=== PATIENT | male | born 1965 | race Two or more races ===

== ENCOUNTER 2018-12-29 13:15 | Day surgery (SDC) | payer OTHER ==
[~2018-12-29] VITALS: Ht 170.2 cm; Wt 118.0 kg
--- NOTE | 2018-12-29 13:29 | NUR ---
PT TO ROOM AT THIS TIME.
--- NOTE | 2018-12-29 13:42 | NUR ---
53 Y/O MALE PRESENTS TO ED WITH C/O LEFT QUAD PAIN. PER PT "YESTERDAY I WAS BRUSHING MY TEETH AND I THREW UP. AFTER THAT MY STOMACH STARTED HURTING. I CAN'T EAT OR DRINK ANYTHING AND I THROW UP. I CAN'T EVEN DRINK GATORADE. NOW I FEEL THE PAIN NOW ACROSS MY BELLY." NO C/O D, TRAUMA, SYNCOPE, CP, SOB.
[2018-12-29] MEDS ORDERED: SODIUM CHLORIDE FLUSH 10ML SYR IVF ONE (14:00)
[2018-12-29] MEDS ORDERED: SODIUM CHLORIDE 0.9% 1,000ML IVBOLUS ONE (14:00)
[2018-12-29 14:32] LABS: BASOPHILS # (AUTO) 0.13 x10^3/uL (0-0.1); BASOPHILS % (AUTO) 1 % (0-1); EOSINOPHILS % (AUTO) 0 % (1-7); LYMPHOCYTES # (AUTO) 0.73 x10^3/uL (1-3.4); LYMPHOCYTES % (AUTO) 4 % (22-44); MD NO; MEAN CORPUSCULAR HEMOGLOBIN 30.5 pg (27.5-34.5); MEAN CORPUSCULAR HGB CONC 33.7 g/dL (33.2-36.2); MEAN CORPUSCULAR VOLUME 90.4 fL (81-97); MEAN PLATELET VOLUME 9.7 fL (7.4-10.4); MONOCYTES # (AUTO) 0.23 x10^3/uL (0.2-0.8); MONOCYTES % (AUTO) 1 % (2-9); NEUTROPHILS % (AUTO) 94 % (42-75); PLATELET COUNT 187 x10^3/uL (130-400); RED BLOOD COUNT 5.36 x10^6/uL (4.38-5.82); RED CELL DISTRIBUTION WIDTH 12.6 % (9.4-14.8)
[2018-12-29 14:41] LABS: ALANINE AMINOTRANSFERASE 26 U/L (12-78); ALBUMIN 3.4 g/dL (3.4-5.0); ANION GAP 7 mmol/L (5-15); CALCIUM 8.6 mg/dL (8.5-10.1); CHLORIDE 100 mmol/L (98-107); CREATININE 1.08 mg/dL (0.7-1.3)
[2018-12-29 14:43] LABS: ALKALINE PHOSPHATASE 112 U/L (45-117); BILIRUBIN,TOTAL 0.8 mg/dL (0.2-1.0); TOTAL PROTEIN 7.5 g/dL (6.4-8.2)
--- NOTE | 2018-12-29 14:52 | NUR ---
PT BEING TAKEN TO IMAGING.
[2018-12-29] MEDS ORDERED: OMNIPAQUE 350 MG/ML, 100ML BOTTLE ONE (15:05)
--- NOTE | 2018-12-29 15:33 | NUR ---
PT BACK FROM IMAGING.
--- NOTE | 2018-12-29 15:34 | NUR ---
PT RESTING ON GURNEY. NO ACUTE DISTRESS NOTED. BLANKETS REARRANGED ON PT. VSS. NO NEEDS REQUESTED AT THIS TIME.
[2018-12-29] MEDS ORDERED: CEFOTETAN PMX 1GM/50ML 50 ML ONE ×2 (15:45→19:07)
--- NOTE | 2018-12-29 15:50 | NUR ---
PT RESTING ON GURNEY. NO ACUTE DISTRESS NOTED. PT EDUCATED REGARDING NPO STATUS. PT VERBALIZED UNDERSTANDING. NO NEEDS REQUESTED AT THIS TIME.
[2018-12-29] MEDS ORDERED: METF500T17 PO (15:51)
[2018-12-29] MEDS ORDERED: CEFOTETAN PMX 1GM/50ML 50 ML IV ONE (16:00)
[2018-12-29] MEDS ORDERED: ONDANSETRON 2MG/ML, 2ML IVPush PRN (17:00)
[2018-12-29] MEDS ORDERED: morphine SULFATE 10 MG/ML, 1ML IVPush PRN (17:00)
--- NOTE | 2018-12-29 17:56 | NUR ---
REPORT TO KERRY MULLER. PT GOING TO OR.
[2018-12-29] MEDS ORDERED: SODIUM CHLORIDE 0.9%, 500ML IVBOLUS ONE (18:00)
[2018-12-29] MEDS ORDERED: BUPIVACAINE/PF-EPI 0.5% 1:200K ONE (18:11)
[2018-12-29] MEDS ORDERED: FENTANYL PF 250 MCG/5ML ONE (18:18)
[2018-12-29] MEDS ORDERED: ONDANSETRON 2MG/ML, 2ML IV PRN (19:00)
[2018-12-29] MEDS ORDERED: LABETALOL 5MG/ML, 20ML IV PRN (19:00)
[2018-12-29] MEDS ORDERED: PROMETHAZINE 25 MG/ML, 1ML IV PRN (19:00)
[2018-12-29] MEDS ORDERED: OXYcodone 5 MG/5 ML ORAL.SOL UDC PO PRN (19:00)
[2018-12-29] MEDS ORDERED: FENTANYL PF 100 MCG/2ML IV PRN (19:00)
[2018-12-29] MEDS ORDERED: MEPERIDINE/PF 25MG/0.5ML IVPush PRN (19:00)
[2018-12-29] MEDS ORDERED: ONDANSETRON ODT 8 MG PO PRN (19:00)
[2018-12-29] MEDS ORDERED: HYDROmorphone 2 MG/ML, 1ML IVPush PRN (19:00)
[2018-12-29] MEDS ORDERED: hydrALAzine 20 MG/ML, 1ML IV PRN (19:00)
[2018-12-29] MEDS ORDERED: LORazepam 2 MG/ML, 1ML IVPush PRN (19:00)
[2018-12-29] MEDS ORDERED: ACETAMINOPHEN 325 MG TABLET PO PRN (19:00)
[2018-12-29] MEDS ORDERED: PROPOFOL 10 MG/ML, 20ML ONE (19:06)
[2018-12-29] MEDS ORDERED: ONDANSETRON 2MG/ML, 2ML ONE (19:06)
[2018-12-29] MEDS ORDERED: ROCURONIUM 10MG/ML,5ML ONE (19:06)
[2018-12-29] MEDS ORDERED: GLYCOPYRROLATE 0.2MG/1ML, 5ML ONE (19:06)
[2018-12-29] MEDS ORDERED: NEOSTIGMINE 1 MG/ML, 10ML ONE (19:06)
[2018-12-29] MEDS ORDERED: DEXAMETHASONE 4 MG/ML, 1ML ONE (19:06)
[2018-12-29] MEDS ORDERED: CEFAZOLIN 1,000 MG ONE (19:06)
[2018-12-29] MEDS ORDERED: SUCCINYLCHOLINE 20 MG/ML, 10ML ONE (19:06)
[2018-12-29] MEDS ORDERED: OXYcodone 5 MG/5 ML ORAL.SOL UDC ONE (19:41)
[2018-12-29 21:02] VITALS: BP 121/71
[2018-12-29] MEDS ORDERED: CEFOTETAN PMX 2GM/50ML 50 ML IV SCH (21:30)
[2018-12-29] MEDS: INSULIN LISPRO 100 UNITS/ML, PEN SQ-INSULIN SCH (21:54)
[2018-12-30 00:12] VITALS: BP 109/73
[2018-12-30] MEDS: SODIUM CHLORIDE 0.9% 1,000 ML IV SCH ×2 (00:32→10:00)
[2018-12-30 03:21] VITALS: BP 121/76
[2018-12-30 05:27] LABS: BASOPHILS # (AUTO) 0.04 x10^3/uL (0-0.1); BASOPHILS % (AUTO) 0 % (0-1); EOSINOPHILS # (AUTO) 0.02 x10^3/uL (0-0.4); EOSINOPHILS % (AUTO) 0 % (1-7); LYMPHOCYTES # (AUTO) 1.02 x10^3/uL (1-3.4); LYMPHOCYTES % (AUTO) 11 % (22-44); MD NO; MEAN CORPUSCULAR HEMOGLOBIN 30.3 pg (27.5-34.5); MEAN CORPUSCULAR HGB CONC 33.3 g/dL (33.2-36.2); MEAN CORPUSCULAR VOLUME 90.8 fL (81-97); MEAN PLATELET VOLUME 10.2 fL (7.4-10.4); MONOCYTES # (AUTO) 0.52 x10^3/uL (0.2-0.8); MONOCYTES % (AUTO) 6 % (2-9); NEUTROPHILS # (AUTO) 7.57 x10^3/uL (1.8-6.8); NEUTROPHILS % (AUTO) 83 % (42-75); PLATELET COUNT 155 x10^3/uL (130-400); RED BLOOD COUNT 4.66 x10^6/uL (4.38-5.82); RED CELL DISTRIBUTION WIDTH 13.3 % (9.4-14.8)
[2018-12-30 05:34] LABS: ALANINE AMINOTRANSFERASE 21 U/L (12-78); ALBUMIN 2.6 g/dL (3.4-5.0); ANION GAP 7 mmol/L (5-15); CALCIUM 7.8 mg/dL (8.5-10.1); CHLORIDE 106 mmol/L (98-107)
[2018-12-30 05:45] LABS: ALKALINE PHOSPHATASE 86 U/L (45-117); BILIRUBIN,TOTAL 0.6 mg/dL (0.2-1.0); CREATININE 0.71 mg/dL (0.7-1.3); THYROID STIMULATING HORMONE 0.624 mIU/L (0.358-3.740)
[2018-12-30 07:18] VITALS: BP 121/71
[2018-12-30] MEDS: INSULIN LISPRO 100 UNITS/ML, PEN SQ-INSULIN SCH ×2 (07:36→11:24)
[2018-12-30] MEDS ORDERED: METF850T10 PO (10:40)
[2018-12-30 12:15] LABS: HEMOGLOBIN A1C 12.4 % (4.2-6.3)
== END 2018-12-29 23:59 | disposition home or self-care (01) ==
LOC: ED 15:48 → OUT 15:48 → UNDOADMIN 15:49 → EDIP 15:49 → ED 16:14 → EDSTATUS 16:44 → 4NOR 20:15 → EDIP 20:15 → OUT 23:59 → DCLOUNGE 12-30 13:05 → 4NOR 12-30 13:05 → UNDODISIN 12-30 13:29 → OUT 12-30 15:48
PROVIDERS: ATTEND Emergency Medicine
DX: K35.80 Unspecified acute appendicitis (principal); I10 Essential (primary) hypertension; E11.65 Type 2 diabetes mellitus with hyperglycemia; E86.0 Dehydration; D72.829 Elevated white blood cell count, unspecified; E66.9 Obesity, unspecified; Z68.38 Body mass index [BMI] 38.0-38.9, adult; Z79.84 Long term (current) use of oral hypoglycemic drugs; Z83.3 Family history of diabetes mellitus; Z73.89 Other problems related to life management difficulty
CPT/HCPCS: 36415; 44970; 74177; 80053; 82962; 85025; 88304; 96361; 96365; 99285; J0330; J1100; J1815; J2405; J2704; J2710; J3010; J3490; J7030; J7040; Q9967; 83036; 84443; G0378; J0690

== ENCOUNTER 2019-07-25 01:11 | Inpatient (IN) | payer SELFPAY ==
[~2019-07-25] VITALS: Ht 170.2 cm; Wt 110.0 kg
[~2019-07-25 01:11] MED LIST: METF500T17 PO; METF850T10 PO
[2019-07-25] MEDS ORDERED: ASPIRIN 81 MG TABLET CHEW ONE (01:46)
[2019-07-25 01:50] LABS: BASOPHILS # (AUTO) 0.05 x10^3/uL (0-0.1); BASOPHILS % (AUTO) 1 % (0-1); EOSINOPHILS # (AUTO) 0.17 x10^3/uL (0-0.4); EOSINOPHILS % (AUTO) 2 % (1-7); LYMPHOCYTES # (AUTO) 3.59 x10^3/uL (1-3.4); LYMPHOCYTES % (AUTO) 41 % (22-44); MD NO; MEAN CORPUSCULAR HEMOGLOBIN 29.9 pg (27.5-34.5); MEAN CORPUSCULAR VOLUME 90.6 fL (81-97); MEAN PLATELET VOLUME 9.9 fL (7.4-10.4); MONOCYTES # (AUTO) 0.59 x10^3/uL (0.2-0.8); MONOCYTES % (AUTO) 7 % (2-9); NEUTROPHILS # (AUTO) 4.38 x10^3/uL (1.8-6.8); NEUTROPHILS % (AUTO) 50 % (42-75); PLATELET COUNT 244 x10^3/uL (130-400); RED BLOOD COUNT 5.41 x10^6/uL (4.38-5.82)
--- NOTE | 2019-07-25 01:53 | NUR ---
PT REPORTS LEFT SIDED CHEST PAIN THAT COMES AND GOES SINCE YESTERDAY AT 1630. LINING PRINTER ON. NSR NOTED. CALL LIGHT IN PLACE. PT SEEN BY DR CLINE. PT REPORTS HE DOES NOT WANT MORPHINE AT THIS TIME. REPORT GIVEN TO KERRY JONES.
[2019-07-25] MEDS ORDERED: ASPIRIN 81 MG TABLET CHEW PO ONE (02:00)
[2019-07-25] MEDS ORDERED: MORPHINE SULFATE 4 MG/ML, 1ML IVPush PRN (02:00)
[2019-07-25] MEDS ORDERED: SODIUM CHLORIDE FLUSH 10ML SYR IVF ONE (02:00)
[2019-07-25 02:02] LABS: ALANINE AMINOTRANSFERASE 25 U/L (12-78); ALBUMIN 3.6 g/dL (3.4-5.0); ANION GAP 10 mmol/L (5-15); CALCIUM 8.7 mg/dL (8.5-10.1); CHLORIDE 104 mmol/L (98-107); CREATININE 0.78 mg/dL (0.7-1.3)
[2019-07-25 02:07] LABS: ALKALINE PHOSPHATASE 112 U/L (45-117); BILIRUBIN,TOTAL 0.4 mg/dL (0.2-1.0); TOTAL PROTEIN 7.6 g/dL (6.4-8.2)
[2019-07-25 02:08] LABS: TROPONIN I 0.147 ng/mL (0.000-0.045)
--- NOTE | 2019-07-25 03:10 | NUR ---
REPORT TO KERRY HENNING
[2019-07-25 03:54] VITALS: BP 147/99
[2019-07-25] MEDS ORDERED: NITROGLYCERIN 0.4 MG BOTTLE (25 TABS) SL PRN (05:30)
[2019-07-25] MEDS ORDERED: ACETAMINOPHEN 325 MG TABLET PO PRN (05:30)
[2019-07-25] MEDS ORDERED: ENOXAPARIN 40 MG/0.4 ML SQ SCH (05:30)
[2019-07-25] MEDS ORDERED: PROMETHAZINE 25 MG/ML, 1ML IM PRN (05:30)
[2019-07-25] MEDS ORDERED: hydrALAzine 20 MG/ML, 1ML IVPush PRN (05:30)
[2019-07-25] MEDS ORDERED: morphine SULFATE 10 MG/ML, 1ML IVPush PRN (05:30)
[2019-07-25] MEDS: ASPIRIN 325 MG TABLET EC PO SCH (06:35)
[2019-07-25] MEDS: INSULIN LISPRO 100 UNITS/ML, PEN SQ-INSULIN SCH ×4 (07:00→21:17)
[2019-07-25 07:32] LABS: CHOLESTEROL, TOTAL 176 mg/dL (140-239); TRIGLYCERIDES 91 mg/dL (50-200); VLDL CHOLESTEROL 18 mg/dL (0-25)
[2019-07-25 07:35] LABS: CHOL/HDL RATIO 4.3; HDL CHOL % 23 % (26-37); HDL CHOLESTEROL (DIRECT) 41 mg/dL (40-60); LDL CHOLESTEROL,CALCULATED 117 mg/dL (54-169); LDL/HDL RATIO 2.9 (0.5-3.0)
[2019-07-25 07:46] LABS: HEMOGLOBIN A1C 11.8 % (4.2-6.3)
[2019-07-25] MEDS ORDERED: HEPARIN 5,000 UNITS/ML, 1ML IV ONE (08:30)
[2019-07-25] MEDS ORDERED: LISINOPRIL 5 MG TABLET PO SCH (09:00)
[2019-07-25] MEDS ORDERED: GLUCAGON 1 MG IM PRN (09:00)
[2019-07-25] MEDS ORDERED: DEXTROSE 4 GM TAB.CHEW PO PRN (09:00)
[2019-07-25] MEDS ORDERED: DEXTROSE 50%, 50ML SYRINGE IVPush PRN (09:00)
[2019-07-25] MEDS: HEPARIN 25,000 UNITS/500ML PMX 500 ML IV PRN (09:48)
[2019-07-25] MEDS: SODIUM CHLORIDE FLUSH 10ML SYR IVF SCH ×2 (09:51→21:06)
[2019-07-25 14:30] VITALS: BP 113/73
[2019-07-25] MEDS: HEPARIN 5,000 UNITS/ML, 1ML IV PRN ×2 (16:09→23:21)
[2019-07-25] MEDS: CARVEDILOL 6.25 MG TABLET PO SCH (18:02)
[2019-07-25 18:56] VITALS: BP 124/78
[2019-07-25 21:04] VITALS: BP 107/74
[2019-07-25] MEDS: LISINOPRIL 5 MG TABLET PO SCH (21:06)
[2019-07-26 01:30] VITALS: BP 101/65
[2019-07-26 04:20] LABS: BASOPHILS # (AUTO) 0.06 x10^3/uL (0-0.1); BASOPHILS % (AUTO) 1 % (0-1); EOSINOPHILS # (AUTO) 0.12 x10^3/uL (0-0.4); EOSINOPHILS % (AUTO) 2 % (1-7); LYMPHOCYTES # (AUTO) 2.93 x10^3/uL (1-3.4); LYMPHOCYTES % (AUTO) 40 % (22-44); MD NO; MEAN CORPUSCULAR HEMOGLOBIN 30.2 pg (27.5-34.5); MEAN CORPUSCULAR VOLUME 91.5 fL (81-97); MEAN PLATELET VOLUME 10.1 fL (7.4-10.4); MONOCYTES # (AUTO) 0.51 x10^3/uL (0.2-0.8); MONOCYTES % (AUTO) 7 % (2-9); NEUTROPHILS % (AUTO) 51 % (42-75); PLATELET COUNT 224 x10^3/uL (130-400); RED BLOOD COUNT 5.07 x10^6/uL (4.38-5.82); RED CELL DISTRIBUTION WIDTH 13.5 % (9.4-14.8)
[2019-07-26 04:31] LABS: ANION GAP 5 mmol/L (5-15); CALCIUM 8.6 mg/dL (8.5-10.1); CHLORIDE 107 mmol/L (98-107); CREATININE 0.71 mg/dL (0.7-1.3)
[2019-07-26 05:57] VITALS: BP 109/74
[2019-07-26] MEDS: CARVEDILOL 6.25 MG TABLET PO SCH ×2 (06:01→17:08)
[2019-07-26] MEDS: HEPARIN 5,000 UNITS/ML, 1ML IV PRN ×2 (06:02→11:52)
[2019-07-26] MEDS: ASPIRIN 325 MG TABLET EC PO SCH (06:02)
[2019-07-26] MEDS: INSULIN LISPRO 100 UNITS/ML, PEN SQ-INSULIN SCH ×4 (07:19→20:32)
[2019-07-26] MEDS: HEPARIN 25,000 UNITS/500ML PMX 500 ML IV PRN ×2 (07:21→23:31)
[2019-07-26 07:24] VITALS: BP 110/65
[2019-07-26] MEDS: SODIUM CHLORIDE FLUSH 10ML SYR IVF SCH ×2 (07:49→20:33)
[2019-07-26] MEDS: LISINOPRIL 5 MG TABLET PO SCH ×2 (07:49→20:32)
[2019-07-26 14:38] VITALS: BP 104/67
[2019-07-26 18:26] VITALS: BP 118/77
[2019-07-26] MEDS: ATORVASTATIN 40 MG TABLET PO SCH (20:32)
[2019-07-27 00:45] VITALS: BP 116/72
[2019-07-27] MEDS: HEPARIN 5,000 UNITS/ML, 1ML IV PRN (01:39)
[2019-07-27 05:15] LABS: BASOPHILS # (AUTO) 0.04 x10^3/uL (0-0.1); BASOPHILS % (AUTO) 1 % (0-1); EOSINOPHILS % (AUTO) 2 % (1-7); LYMPHOCYTES # (AUTO) 2.26 x10^3/uL (1-3.4); LYMPHOCYTES % (AUTO) 27 % (22-44); MD NO; MEAN CORPUSCULAR HGB CONC 33.1 g/dL (33.2-36.2); MEAN CORPUSCULAR VOLUME 90.7 fL (81-97); MEAN PLATELET VOLUME 10.2 fL (7.4-10.4); MONOCYTES # (AUTO) 0.69 x10^3/uL (0.2-0.8); MONOCYTES % (AUTO) 8 % (2-9); NEUTROPHILS # (AUTO) 5.31 x10^3/uL (1.8-6.8); NEUTROPHILS % (AUTO) 63 % (42-75); PLATELET COUNT 215 x10^3/uL (130-400); RED CELL DISTRIBUTION WIDTH 13.2 % (9.4-14.8)
[2019-07-27 05:23] LABS: ANION GAP 5 mmol/L (5-15); CALCIUM 8.6 mg/dL (8.5-10.1); CHLORIDE 105 mmol/L (98-107)
[2019-07-27 05:27] LABS: ALANINE AMINOTRANSFERASE 23 U/L (12-78); ALKALINE PHOSPHATASE 86 U/L (45-117); BILIRUBIN,TOTAL 0.7 mg/dL (0.2-1.0); CREATININE 0.79 mg/dL (0.7-1.3); TOTAL PROTEIN 6.6 g/dL (6.4-8.2)
[2019-07-27] MEDS: CARVEDILOL 6.25 MG TABLET PO SCH ×2 (05:37→18:25)
[2019-07-27] MEDS: ASPIRIN 325 MG TABLET EC PO SCH (05:37)
[2019-07-27] MEDS: INSULIN LISPRO 100 UNITS/ML, PEN SQ-INSULIN SCH ×4 (07:00→21:32)
[2019-07-27 07:40] VITALS: BP 100/68
[2019-07-27] MEDS: LISINOPRIL 5 MG TABLET PO SCH ×2 (08:35→21:32)
[2019-07-27] MEDS: SODIUM CHLORIDE FLUSH 10ML SYR IVF SCH ×2 (08:35→21:00)
[2019-07-27] MEDS ORDERED: SODIUM CHLORIDE 0.9% 1,000 ML IV SCH ×2 (11:00→13:02)
[2019-07-27] MEDS ORDERED: NITROGLYCERIN 5 MG/ML, 10ML ONE (12:03)
[2019-07-27] MEDS ORDERED: MIDAZOLAM 1 MG/ML, 5ML ONE (12:03)
[2019-07-27] MEDS ORDERED: VERAPAMIL 2.5 MG/ML, 2ML ONE (12:03)
[2019-07-27] MEDS ORDERED: FENTANYL PF 250 MCG/5ML ONE (12:03)
[2019-07-27] MEDS ORDERED: LIDOCAINE 1%, 20ML ONE (12:04)
[2019-07-27] MEDS ORDERED: HEPARIN 1,000 UNITS/ML, 10ML ONE (12:04)
[2019-07-27] MEDS ORDERED: BIVALIRUDIN 250 MG ONE ×2 (12:04→12:08)
[2019-07-27] MEDS ORDERED: BIVALIRUDIN 250 MG in SODIUM CHLORIDE 0.9% 50 ML IV SCH (13:02)
[2019-07-27] MEDS ORDERED: PRASUGREL 10 MG TABLET ONE (13:03)
[2019-07-27] MEDS ORDERED: ONDANSETRON 2MG/ML, 2ML IVPush PRN (13:30)
[2019-07-27] MEDS ORDERED: ZOLPIDEM 5MG TABLET PO PRN (13:30)
[2019-07-27 13:38] VITALS: BP 152/81
[2019-07-27 18:57] VITALS: BP 118/75
[2019-07-27] MEDS: ATORVASTATIN 40 MG TABLET PO SCH (21:32)
[2019-07-28 01:01] VITALS: BP 125/84
[2019-07-28 04:13] VITALS: BP 117/83
[2019-07-28 05:40] LABS: ANION GAP 7 mmol/L (5-15); CALCIUM 8.5 mg/dL (8.5-10.1); CHLORIDE 102 mmol/L (98-107)
[2019-07-28 05:41] LABS: CREATININE 0.77 mg/dL (0.7-1.3)
[2019-07-28] MEDS: CARVEDILOL 6.25 MG TABLET PO SCH (05:52)
[2019-07-28] MEDS ORDERED: ASPIRIN 81 MG TABLET EC PO SCH (06:00)
[2019-07-28 08:25] VITALS: BP 120/79
[2019-07-28] MEDS: LISINOPRIL 5 MG TABLET PO SCH (08:39)
[2019-07-28] MEDS: INSULIN LISPRO 100 UNITS/ML, PEN SQ-INSULIN SCH ×2 (08:39→12:56)
[2019-07-28] MEDS: SODIUM CHLORIDE FLUSH 10ML SYR IVF SCH (08:40)
[2019-07-28] MEDS ORDERED: PRASUGREL 10 MG TABLET PO SCH (09:00)
[2019-07-28] MEDS ORDERED: PRAS10TA4 PO (11:39)
[2019-07-28] MEDS ORDERED: LISI5TAB7 PO (11:39)
[2019-07-28] MEDS ORDERED: ATOR40TA78 PO (11:39)
[2019-07-28] MEDS ORDERED: METF500T PO (11:39)
[2019-07-28] MEDS ORDERED: CARV6.2512 PO (11:39)
[2019-07-28] MEDS ORDERED: ASPI81TA45 PO (11:39)
== END 2019-07-28 13:00 | disposition home or self-care (01) | DRG 247 ==
LOC: ED 01:54 → EDIP 02:40 → 5SO 03:46 → UNDODISIN 07-28 11:50 → DCLOUNGE 07-28 12:35
PROVIDERS: ADMIT Family Medicine; ATTEND Internal Medicine
PROC: 027034Z Dilation of Coronary Artery, One Artery with Drug-eluting Intraluminal Device, Percutaneous Approach (ICD-10-PCS; principal; 2019-07-27)
PROC: 4A023N7 Measurement of Cardiac Sampling and Pressure, Left Heart, Percutaneous Approach (ICD-10-PCS; 2019-07-27)
PROC: B2151ZZ Fluoroscopy of Left Heart using Low Osmolar Contrast (ICD-10-PCS; 2019-07-27)
PROC: B2111ZZ Fluoroscopy of Multiple Coronary Arteries using Low Osmolar Contrast (ICD-10-PCS; 2019-07-27)
DX: I21.4 Non-ST elevation (NSTEMI) myocardial infarction (principal); E66.01 Morbid (severe) obesity due to excess calories; I27.20 Pulmonary hypertension, unspecified; E11.9 Type 2 diabetes mellitus without complications; E78.5 Hyperlipidemia, unspecified; I10 Essential (primary) hypertension; Z82.49 Family history of ischemic heart disease and other diseases of the circulatory system; Z91.14 Patient's other noncompliance with medication regimen; Z87.891 Personal history of nicotine dependence; Z68.38 Body mass index [BMI] 38.0-38.9, adult
CPT/HCPCS: 36415; 93458; 99285; C9600; J3490; 80048; 80053; 82962; 83735; 84100; 84484; 85025; 85520; 93005; 99156; 99157; C1769; C1894; G0378; J0583; J1644; J2250; J3010; C1874; C1887; J1815; J7030; Q9967

== ENCOUNTER 2020-08-28 14:08 | Emergency (ER) | payer OTHER ==
[~2020-08-28] VITALS: Ht 170.2 cm; Wt 108.0 kg
[~2020-08-28 14:08] MED LIST changes: +ASPI81TA45 PO; +ATOR40TA78 PO; +CARV6.2512 PO; +LISI5TAB7 PO; +METF500T PO; +PRAS10TA4 PO
[2020-08-28 15:11] LABS: BASOPHILS % (AUTO) 1 % (0-1); EOSINOPHILS % (AUTO) 0 % (1-7); LYMPHOCYTES % (AUTO) 18 % (22-44); MEAN CORPUSCULAR HEMOGLOBIN 30.1 pg (27.5-34.5); MEAN CORPUSCULAR HGB CONC 34.2 g/dL (33.2-36.2); MEAN PLATELET VOLUME 8.8 fL (7.4-10.4); MONOCYTES % (AUTO) 9 % (2-9); NEUTROPHILS % (AUTO) 71 % (42-75); PLATELET COUNT 200 x10^3/uL (130-400); RED BLOOD COUNT 5.37 x10^6/uL (4.38-5.82); RED CELL DISTRIBUTION WIDTH 13.9 % (9.4-14.8)
[2020-08-28 15:13] LABS: MD NO
[2020-08-28 15:20] LABS: ALBUMIN 3.8 g/dL (3.4-5.0); ANION GAP 9 mmol/L (5-15); CALCIUM 8.7 mg/dL (8.5-10.1); CHLORIDE 104 mmol/L (98-107); CREATININE 0.74 mg/dL (0.7-1.3)
[2020-08-28 15:23] LABS: TROPONIN I < 0.015 ng/mL (0.000-0.045)
[2020-08-28 17:07] VITALS: BP 123/76
== END 2020-08-28 17:10 | disposition home or self-care (01) ==
LOC: ED 14:58
DX: R07.89 Other chest pain (principal); R94.31 Abnormal electrocardiogram [ECG] [EKG]; I10 Essential (primary) hypertension; E11.9 Type 2 diabetes mellitus without complications; I25.2 Old myocardial infarction
CPT/HCPCS: 36415; 71046; 80048; 82040; 84484; 85025; 93005; 99285

== ENCOUNTER 2020-09-01 16:43 | Observation (INO) | payer OTHER ==
[~2020-09-01] VITALS: Ht 165.1 cm; Wt 106.4 kg
--- NOTE | 2020-09-01 17:13 | NUR ---
pt states "about 2 hours ago i felt SOB and felt like i was having a anxiety attack"
--- NOTE | 2020-09-01 18:13 | NUR ---
pt in bed, temp 102.9, no distress
[2020-09-01 18:16] LABS: BASOPHILS % (AUTO) 0 % (0-1); EOSINOPHILS % (AUTO) 0 % (1-7); LYMPHOCYTES % (AUTO) 16 % (22-44); MEAN CORPUSCULAR HEMOGLOBIN 30.2 pg (27.5-34.5); MEAN CORPUSCULAR HGB CONC 34.7 g/dL (33.2-36.2); MEAN PLATELET VOLUME 9.2 fL (7.4-10.4); MONOCYTES % (AUTO) 7 % (2-9); NEUTROPHILS % (AUTO) 77 % (42-75); PLATELET COUNT 184 x10^3/uL (130-400); RED CELL DISTRIBUTION WIDTH 13.6 % (9.4-14.8)
[2020-09-01 18:19] LABS: ALANINE AMINOTRANSFERASE 19 U/L (12-78); ALBUMIN 3.3 g/dL (3.4-5.0); ANION GAP 6 mmol/L (5-15); CALCIUM 8.6 mg/dL (8.5-10.1); CHLORIDE 102 mmol/L (98-107); CREATININE 0.89 mg/dL (0.7-1.3)
[2020-09-01 18:21] LABS: MD NO
[2020-09-01 18:22] LABS: ALKALINE PHOSPHATASE 87 U/L (45-117); BILIRUBIN,TOTAL 0.6 mg/dL (0.2-1.0); TOTAL PROTEIN 7.8 g/dL (6.4-8.2)
[2020-09-01] MEDS ORDERED: ACETAMINOPHEN 500 MG TABLET PO/NG ONE (18:30)
[2020-09-01 18:34] LABS: TROPONIN I < 0.015 ng/mL (0.000-0.045)
[2020-09-01] MEDS ORDERED: ACETAMINOPHEN 500 MG TABLET ONE (18:38)
[2020-09-01] MEDS ORDERED: OMNIPAQUE 350 MG/ML, 100ML BOTTLE ONE (19:23)
[2020-09-01] MEDS ORDERED: IBUPROFEN 800 MG TABLET ONE (19:25)
--- NOTE | 2020-09-01 19:27 | NUR ---
pt temp 103. notified md. admin ibu. no distress
[2020-09-01] MEDS ORDERED: IBUPROFEN 800 MG TABLET PO ONE (19:30)
[2020-09-01] MEDS ORDERED: CEFTRIAXONE PMX 1GM/50ML 50 ML ONE (19:42)
[2020-09-01] MEDS ORDERED: CEFTRIAXONE PMX 1GM/50ML 50 ML IVPB ONE (20:00)
[2020-09-01] MEDS ORDERED: AZITHROMYCIN 500 MG in SODIUM CHLORIDE 0.9% 250 ML IV ONE (20:00)
[2020-09-01] MEDS ORDERED: ENOXAPARIN 40 MG/0.4 ML ONE (20:00)
[2020-09-01] MEDS ORDERED: CEFTRIAXONE PMX 2GM/50ML 50 ML IVPB SCH (20:00)
[2020-09-01] MEDS ORDERED: ENOXAPARIN 40 MG/0.4 ML SQ SCH (20:00)
[2020-09-01 20:02] LABS: D-DIMER (DIC) 0.89 ug/mlFEU (0.00-0.52)
--- NOTE | 2020-09-01 20:18 | NUR ---
pt in bed admin ivab, no distress, temp 99
[2020-09-01] MEDS ORDERED: LABETALOL 5MG/ML, 20ML IVPush PRN (20:30)
[2020-09-01] MEDS ORDERED: BISACODYL 10 MG SUPP PR PRN (20:30)
[2020-09-01] MEDS ORDERED: GUAIFENESIN/DM 200-20MG, 10ML UDC PO PRN (20:30)
[2020-09-01] MEDS ORDERED: POLYETHYLENE GLYCOL 17 GM PACKET PO PRN (20:30)
[2020-09-01] MEDS ORDERED: IBUPROFEN 600 MG TABLET PO PRN (20:30)
[2020-09-01] MEDS ORDERED: hydrALAzine 20 MG/ML, 1ML IVPush PRN (20:30)
[2020-09-01] MEDS ORDERED: ONDANSETRON 2MG/ML, 2ML IVPush PRN (20:30)
[2020-09-01] MEDS ORDERED: ACETAMINOPHEN 325 MG TABLET PO PRN (20:30)
[2020-09-01] MEDS ORDERED: DIPHENHYDRAMINE 25 MG CAPSULE PO PRN (20:30)
[2020-09-01] MEDS ORDERED: ATORVASTATIN 20 MG TABLET PO SCH (21:00)
[2020-09-01] MEDS ORDERED: DOXYCYCLINE 100MG CAP PO SCH (21:00)
[2020-09-01] MEDS ORDERED: MELATONIN 5 MG TABLET PO SCH (21:00)
[2020-09-01] MEDS: LISINOPRIL 10 MG TABLET PO SCH (21:00)
[2020-09-01] MEDS ORDERED: LISINOPRIL 5 MG TABLET PO SCH (21:00)
[2020-09-01] MEDS ORDERED: ATORVASTATIN 40 MG TABLET PO SCH (21:00)
[2020-09-01] MEDS: metFORMIN 500 MG TABLET PO SCH (21:00)
[2020-09-01] MEDS: INSULIN LISPRO 100 UNITS/ML, PEN SQ-INSULIN SCH (21:00)
[2020-09-01] MEDS: ASCORBIC ACID 500 MG TABLET PO SCH (21:38)
--- NOTE | 2020-09-01 21:42 | NUR ---
pt in bed no distress
--- NOTE | 2020-09-01 21:43 | NUR ---
pt refused meal tray
--- NOTE | 2020-09-01 22:11 | NUR ---
PT RESTING C EYES CLOSED, IN NAD. HOSPITAL BED ORDERED. WILL CTM.
[2020-09-02 01:24] VITALS: BP 116/76
[2020-09-02 01:34] VITALS: BP 116/76
[2020-09-02] MEDS ORDERED: CARVEDILOL 6.25 MG TABLET PO SCH (06:00)
[2020-09-02] MEDS ORDERED: ASPIRIN 81 MG TABLET EC PO SCH (06:00)
[2020-09-02 06:22] LABS: BASOPHILS % (AUTO) 1 % (0-1); EOSINOPHILS % (AUTO) 1 % (1-7); LYMPHOCYTES % (AUTO) 28 % (22-44); MD NO; MEAN CORPUSCULAR HEMOGLOBIN 29.5 pg (27.5-34.5); MEAN CORPUSCULAR HGB CONC 33.6 g/dL (33.2-36.2); MEAN PLATELET VOLUME 9.2 fL (7.4-10.4); MONOCYTES % (AUTO) 7 % (2-9); NEUTROPHILS % (AUTO) 64 % (42-75); PLATELET COUNT 179 x10^3/uL (130-400); RED BLOOD COUNT 5.13 x10^6/uL (4.38-5.82); RED CELL DISTRIBUTION WIDTH 13.8 % (9.4-14.8)
[2020-09-02 06:30] LABS: ANION GAP 9 mmol/L (5-15); CALCIUM 8.5 mg/dL (8.5-10.1); CHLORIDE 104 mmol/L (98-107)
[2020-09-02] MEDS ORDERED: CEFTRIAXONE PMX 2GM/50ML 50 ML IVPB SCH (07:00)
[2020-09-02] MEDS: metFORMIN 500 MG TABLET PO SCH (07:10)
[2020-09-02] MEDS: INSULIN LISPRO 100 UNITS/ML, PEN SQ-INSULIN SCH ×3 (07:13→15:50)
[2020-09-02] MEDS: ASCORBIC ACID 500 MG TABLET PO SCH (07:22)
[2020-09-02] MEDS: DOXYCYCLINE 100MG CAP PO SCH ×2 (07:22→15:31)
[2020-09-02] MEDS: LISINOPRIL 10 MG TABLET PO SCH (07:22)
[2020-09-02] MEDS ORDERED: SENNA/DOCUSATE TABLET PO SCH (09:00)
[2020-09-02] MEDS ORDERED: CLOPIDOGREL 75 MG TABLET PO SCH (09:00)
[2020-09-02] MEDS ORDERED: MULTIVITAMIN 1 TABLET PO SCH (09:00)
[2020-09-02] MEDS ORDERED: DEXAMETHASONE 4 MG/ML, 1ML IVPush SCH (09:00)
[2020-09-02 09:20] VITALS: BP 127/78
[2020-09-02] MEDS ORDERED: ZINC SULFATE 220 MG CAPSULE PO SCH (12:00)
[2020-09-02 13:06] VITALS: BP 113/74
[2020-09-02] MEDS ORDERED: ASCO500T9 PO (15:15)
[2020-09-02] MEDS ORDERED: ZINC220C7 PO (15:15)
[2020-09-02] MEDS ORDERED: DOXY100C2 PO (15:15)
[2020-09-02] MEDS ORDERED: metFORMIN 500 MG TABLET PO SCH (17:00)
== END 2020-09-02 16:40 | disposition home or self-care (01) ==
LOC: ED 17:17 → INTOOBSV 19:49 → OBSVTOIN 19:49 → EDIP 19:49 → 4EST 09-02 01:05
PROVIDERS: ADMIT Family Medicine; ATTEND Family Medicine
DX: U07.1 COVID-19 (principal); J12.82 Pneumonia due to coronavirus disease 2019; R65.10 Systemic inflammatory response syndrome (SIRS) of non-infectious origin without acute organ dysfunction; E11.9 Type 2 diabetes mellitus without complications; I10 Essential (primary) hypertension; I25.10 Atherosclerotic heart disease of native coronary artery without angina pectoris; E66.9 Obesity, unspecified; E87.1 Hypo-osmolality and hyponatremia; I25.2 Old myocardial infarction; E78.5 Hyperlipidemia, unspecified; I21.4 Non-ST elevation (NSTEMI) myocardial infarction; Z68.39 Body mass index [BMI] 39.0-39.9, adult; Z79.82 Long term (current) use of aspirin; Z79.899 Other long term (current) drug therapy
CPT/HCPCS: 36415; 71045; 71275; 80048; 80053; 82728; 82962; 83036; 83605; 83615; 83880; 84145; 84484; 85025; 85049; 85379; 85384; 85610; 85730; 86140; 87040; 93005; 96365; 96366; 96368; 96372; 96375; 99285; G0378; J0456; J0696; J1100; J1650; J1815; J7050; Q9967; U0003; 96374